=== PATIENT | male | born 1950 | race Caucasian/White ===

== ENCOUNTER 2020-08-19 20:54 | Emergency (ER) | payer MEDICARE, MEDICAID, SELFPAY ==
[2020-08-19 21:07] VITALS: BP 138/80; BP 173/80; PULSE 112; PULSE 127; RESP 20; TEMP 35.7; O2SAT 95; O2SAT 97; BMI 24.3
[2020-08-19 21:19] LABS: Glucose, Whole Blood 173 mg/dL (60-115)
--- NOTE | 2020-08-19 21:36 | ED.GENADULT ---
HPI - General Adult General Chief complaint: Psychiatric Symptoms Stated complaint: crisis Time Seen by Provider: 08/19/20 21:29 Source: patient and family Mode of arrival: EMS Limitations: other (Intellectually slow) History of Present Illness HPI narrative: Per patient's sister whose caregiver patient not eating good for last 2 days and today he refused to check his blood sugar hands his sister did not give him the insulin prior to arrival patient was little confused sister thought patient has low blood sugar so gave her orange juice and called the EMS on arrival patient's blood sugar was 173 pain denies any acute complaint saying his right hand is painful no abdominal pain no nausea no vomiting no fever no cough no shortness of breath HPI is limited as patient is intellectually slow Related Data Home Medications Medication Instructions Recorded Confirmed amlodipine 1 tab PO DAILY 08/19/20 08/19/20 blood sugar diagnostic [OneTouch 08/19/20 08/19/20 Ultra Blue Test Strip] empagliflozin [Jardiance] 1 tab PO DAILY 08/19/20 08/19/20 insulin aspart U-100 [Novolog 15 unit SUBCUT TID 08/19/20 08/19/20 U-100 Insulin aspart] ivabradine [Corlanor] 1 tab PO BID 08/19/20 08/19/20 lisinopril 1 tab PO DAILY 08/19/20 08/19/20 omeprazole 1 cap PO QAM 08/19/20 08/19/20 tramadol 1 tab PO QID 08/19/20 08/19/20 Allergies Allergy/AdvReac Type Severity Reaction Status Date / Time acetaminophen [From Tylenol] Allergy Unknown UNKNOWN Unverified 03/21/20 15:30 aspirin [Aspirin] AdvReac Unknown NAUSEA & Unverified 03/21/20 15:30 VOMITING Review of Systems Review of Systems: Yes Unobtainable due to mental status (Mentally challenged) [facility] Past Medical History Medical History (Updated 08/20/20 @ 01:32 by Josh Ceballos MD) Diabetes type 2, uncontrolled Mentally challenged Social History Social History Alcohol intake: unknown Smoking Status: Smoker, status unknown Use of substances other than those prescribed or required for medical reasons: Refusing to respond Advance Directives: No Advance Directives Information Provided: No Physical Exam Vital Signs: Vital Signs: Last Vital Signs Temp 96.2 F L 02/15/21 21:07 Pulse 127 H 08/19/20 21:07 Resp 18 08/19/20 22:17 BP 173/80 H 08/19/20 21:07 Pulse Ox 95 08/19/20 21:07 Body Mass Index 24.3 Const: General: no acute distress and well developed Orientation/consciousness: oriented to person and oriented to place Limitations: other limitations (Mentally challenged) HENMT: Head: Yes normocephalic and Yes atraumatic Ears: hearing grossly normal bilaterally Mouth: Normal oral and palatal mucosa present Eyes: General: appearance normal, both eyes and all related structures Neck: Neck: Yes normal visual inspection and Yes no JVD Chest: Chest palpation & inspection: normal palpation of entire chest wall Resp: Effort & Inspection: normal respiratory effort and able to speak in complete sentences Auscultation: clear to auscultation bilaterally, no crackles, no rales, no rhonchi and no wheezes Cardio: Jugular venous distension: no JVD Rate: regular rate Heart sounds: S1 normal heart sound present and S2 normal heart sound present Peripheral pulses: Peripheral pulses 2+ throughout GI: Inspection: Yes normal to inspection Palpation (GI): Soft to palpation, nontender and no guarding Auscultation: normal bowel sounds Skin: General skin exam: no rashes or lesions noted Neuro: General: oriented to person, oriented to place, gait normal and no focal motor deficits Extrem: General: Yes normal to inspection, Yes no calf tenderness, Yes normal gait and No pedal edema Course Course Course Narrative: Case discussed with patient's sister would like him to stay in the ER till morning does not feel comfortable taking him home at this time. Will will keep the patient until morning Medical Decision Making MDM Narrative Medical decision making narrative: Case discussed with patient's sister mentally challenged poor oral intake for last 2- 3 days lab workup showed slightly elevated sodium level of 146 and elevated WBC count no signs of infection patient received 1 L normal saline vital status stable will discharge patient home with advised to have plenty of fluids at home Lab Data Lab results reviewed: Yes I reviewed the patient's lab results. Result diagrams: 08/19/20 22:21 08/19/20 22:21 Labs: Lab Results 08/19/20 08/19/20 08/19/20 Range/Units 21:15 22:21 22:21 WBC 16.5 H (4.8-10.8) X10*3/uL RBC 5.56 (4.60-5.80) X10*6/uL Hgb 16.0 (14.0-18.0) g/dl Hct 48.9 (42-52) % MCV 87.9 (80-98) fL MCH 28.8 (27.0-33.0) pg MCHC 32.7 (31.0-36.0) g/dl RDW 12.2 (11.0-16.0) % Plt Count 240 (160-400) X10*3/uL MPV 9.5 (9.4-12.4) fL Immature Gran % (Auto) 0.4 (0.0-0.4) % Neut % (Auto) 86.8 H (45-73) % Lymph % (Auto) 8.0 L (20-40) % [place] % (Auto) 4.4 (2-11) % Eos % (Auto) 0.2 (0-4) % Baso % (Auto) 0.2 (0-2) % Lymph # (Auto) 1.3 (1.2-4.9) X10*3/uL [place] # (Auto) 0.7 (0.1-1.2) X10*3/uL Eos # (Auto) 0.0 (0.0-0.4) X10*3/uL Baso # (Auto) 0.0 (0.0-0.2) X10*3/uL Abs Immat Gran (auto) 0.06 H (0.00-0.03) X10*3/uL Absolute Neuts (auto) 14.3 H (2.0-8.3) X10*3/uL Absolute Nucleated RBC 0.000 (0.0-0.012) X10*3/uL Nucleated RBC % (auto) 0.0 (0.0-0.2) /100WBC Sodium 146 H (135-145) mmol/L Potassium 3.8 (3.3-5.1) mmol/L Chloride 105 (96-108) mmol/L Carbon Dioxide 29 (22-29) mmol/L Anion Gap 16 (12-20) BUN 20 H (9-16) mg/dL Creatinine 1.38 (0.5-1.4) mg/dL Estim Creat Clear Calc 47.5 Estimated GFR 51 POC Glucose 173 H (60-115) mg/dL Random Glucose 146 H (60-115) mg/dL Calcium 9.8 (8.4-10.2) mg/dL Total Bilirubin 0.9 (0.0-1.0) mg/dL Direct Bilirubin 0.3 (0.0-0.5) mg/dL AST 43 H (5-37) U/L ALT 39 (0-40) U/L Alkaline Phosphatase 107 (39-117) U/L Total Protein 7.0 (6.5-8.0) g/dL Albumin 4.2 (3.5-5.0) g/dL Urine Color Urine Appearance Urine pH (5.0-8.0) Ur Specific [place] (1.005-1.025) Urine Protein (NEG-TRACE) MG/DL Urine Glucose (UA) (NEG) MG/DL Urine Ketones (NEG) MG/DL Urine Blood (NEG) Urine Nitrite (NEG) Ur Leukocyte Esterase (NEG) Urine RBC (0) /HPF Urine WBC (0-4) /HPF Ur Squamous Epith Cells /LPF Urine Bacteria /LPF Hyaline Casts /LPF Granular Casts /LPF Urine Mucus /LPF COVID-19 ([facility]) (Negative) COVID-19 Clin Com 08/19/20 08/20/20 Range/Units 23:57 00:25 WBC (4.8-10.8) X10*3/uL RBC (4.60-5.80) X10*6/uL Hgb (14.0-18.0) g/dl Hct (42-52) % MCV (80-98) fL MCH (27.0-33.0) pg MCHC (31.0-36.0) g/dl RDW (11.0-16.0) % Plt Count (160-400) X10*3/uL MPV (9.4-12.4) fL Immature Gran % (Auto) (0.0-0.4) % Neut % (Auto) (45-73) % Lymph % (Auto) (20-40) % [place] % (Auto) (2-11) % Eos % (Auto) (0-4) % Baso % (Auto) (0-2) % Lymph # (Auto) (1.2-4.9) X10*3/uL [place] # (Auto) (0.1-1.2) X10*3/uL Eos # (Auto) (0.0-0.4) X10*3/uL Baso # (Auto) (0.0-0.2) X10*3/uL Abs Immat Gran (auto) (0.00-0.03) X10*3/uL Absolute Neuts (auto) (2.0-8.3) X10*3/uL Absolute Nucleated RBC (0.0-0.012) X10*3/uL Nucleated RBC % (auto) (0.0-0.2) /100WBC Sodium (135-145) mmol/L Potassium (3.3-5.1) mmol/L Chloride (96-108) mmol/L Carbon Dioxide (22-29) mmol/L Anion Gap (12-20) BUN (9-16) mg/dL Creatinine (0.5-1.4) mg/dL Estim Creat Clear Calc Estimated GFR POC Glucose (60-115) mg/dL Random Glucose (60-115) mg/dL Calcium (8.4-10.2) mg/dL Total Bilirubin (0.0-1.0) mg/dL Direct Bilirubin (0.0-0.5) mg/dL AST (5-37) U/L ALT (0-40) U/L Alkaline Phosphatase (39-117) U/L Total Protein (6.5-8.0) g/dL Albumin (3.5-5.0) g/dL Urine Color YELLOW Urine Appearance CLEAR Urine pH 6.5 (5.0-8.0) Ur Specific [place] 1.015 (1.005-1.025) Urine Protein 1+ H (NEG-TRACE) MG/DL Urine Glucose (UA) NEG (NEG) MG/DL Urine Ketones 15 (NEG) MG/DL Urine Blood TRACE (NEG) Urine Nitrite NEG (NEG) Ur Leukocyte Esterase NEG (NEG) Urine RBC 0-2 (0) /HPF Urine WBC 0-2 (0-4) /HPF Ur Squamous Epith Cells TRACE /LPF Urine Bacteria NONE /LPF Hyaline Casts 0-2 /LPF Granular Casts 0-2 /LPF Urine Mucus TRACE /LPF COVID-19 ([facility]) Negative (Negative) COVID-19 Clin Com See Note Discharge Plan Discharge Clinical Impression: Dehydration, Hypernatremia Patient Disposition: Home, Self-Care Instructions: Dehydration (ED), Hypernatremia (ED) Additional Instructions: Drink plenty of fluids and follow-up with PCP Take your insulin on time Prescriptions: No Action amlodipine 2.5 mg tablet 1 tab PO DAILY RF: 0 (DME) OneTouch Ultra Blue Test Strip Strip 1 strip MISCELLANEOUS TID RF: 0 omeprazole 40 mg capsule,delayed release(DR/EC) 1 cap PO QAM RF: 0 tramadol 50 mg tablet 1 tab PO QID RF: 0 insulin aspart U-100 [Novolog U-100 Insulin aspart] 100 unit/mL solution 15 unit subcut TID RF: 0 lisinopril 5 mg tablet 1 tab PO DAILY RF: 0 Corlanor 5 mg tablet 1 tab PO BID RF: 0 Jardiance 10 mg tablet 1 tab PO DAILY RF: 0
[2020-08-19 22:17] VITALS: RESP 18
[2020-08-19 22:25] LABS: MANUAL DIFF FLAG NO
[2020-08-19 22:26] LABS: Basophils Percent Auto 0.2 % (0-2); Eosinophils Percent Auto 0.2 % (0-4); Hematocrit 48.9 % (42-52); Imm Gran Abs Auto 0.06 X10*3/uL (0.00-0.03); Imm Gran Pct Auto 0.4 % (0.0-0.4); Lymphocytes Absolute Auto 1.3 X10*3/uL (1.2-4.9); Mean Corpuscular HGB Conc 32.7 g/dl (31.0-36.0); Mean Corpuscular Hemoglobin 28.8 pg (27.0-33.0); Mean Corpuscular Volume 87.9 fL (80-98); Mean Platelet Volume 9.5 fL (9.4-12.4); Monocytes Absolute Auto 0.7 X10*3/uL (0.1-1.2); Monocytes Percent Auto 4.4 % (2-11); Neutrophils Absolute Auto 14.3 X10*3/uL (2.0-8.3); Neutrophils Percent Auto 86.8 % (45-73); Platelet Count 240 X10*3/uL (160-400); Red Blood Count 5.56 X10*6/uL (4.60-5.80); Red Cell Distribution Width 12.2 % (11.0-16.0); White Blood Count 16.5 X10*3/uL (4.8-10.8)
[2020-08-19 22:51] LABS: Alanine Aminotransferase 39 U/L (0-40); Albumin Level 4.2 g/dL (3.5-5.0); Alkaline Phosphatase 107 U/L (39-117); Anion Gap 16 (12-20); Aspartate Amino Transferase 43 U/L (5-37); Bilirubin Direct 0.3 mg/dL (0.0-0.5); Bilirubin Total 0.9 mg/dL (0.0-1.0); Blood Urea Nitrogen 20 mg/dL (9-16); Calcium 9.8 mg/dL (8.4-10.2); Carbon Dioxide 29 mmol/L (22-29); Chloride 105 mmol/L (96-108); Creatinine Clr Calc Pharmacy 47.5; Estimated Glomerular Filt Rate 51; Glucose Random 146 mg/dL (60-115); Potassium 3.8 mmol/L (3.3-5.1); Sodium 146 mmol/L (135-145)
[2020-08-20 00:05] LABS: Appearance Urine CLEAR; Color Urine YELLOW; Glucose Urine UA NEG (NEG); Leukocyte Esterase Urine NEG (NEG); Nitrite Urine NEG (NEG); PH 6.5 (5.0-8.0); Specific Gravity - Urine 1.015 (1.005-1.025); Urine Blood TRACE (NEG); Urine Ketones 15 MG/DL (NEG); Urine Protein 1+ MG/DL (NEG-TRACE)
[2020-08-20 00:11] LABS: RBC Urine 0-2 /HPF (0); Squamous Epithelial Cell Urine TRACE /LPF; WBC Urine 0-2 /HPF (0-4)
[2020-08-20 00:12] LABS: Granular Casts Urine 0-2 /LPF; Hyaline Casts Urine 0-2 /LPF; Mucus Urine TRACE /LPF
[2020-08-20] MEDS: 0.9 % Sodium Chloride 1,000 ML 999 ML IVCONT (00:35)
--- NOTE | 2020-08-20 00:36 | PC.NURSE ---
22g l hand established for iv bolus.
[2020-08-20 01:08] LABS: COVID-19 Test Negative (Negative); IDNOW Serial# 9DD0AD1C
--- NOTE | 2020-08-20 01:38 | PC.NURSE ---
Addendum entered by Jory Weaver 08/20/20 01:39: PER MD ROJAS. PATIETN TO BE D/C IN AM AT 7AM, POST SHIFT CHANGE PER FAMILY REQUEST. CONTINUING TO [facility] AT THIS TIME. Original Note: PT TO BE HELD IN ED.
[2020-08-20 02:00] VITALS: RESP 18
[2020-08-20 05:51] VITALS: RESP 16; O2SAT 100
--- NOTE | 2020-08-20 06:00 | PC.NURSE ---
per md no no need for repeat bmp, iv removed. no need for repeat bgl.
--- NOTE | 2020-08-20 06:03 | PC.NURSE ---
pt adamantly refusing all addition repeat labs.
--- NOTE | 2020-08-20 06:04 | PC.NURSE ---
call placed to caregiver. no answer.
--- NOTE | 2020-08-20 06:39 | PC.NURSE ---
called 4x to obtain ride for patient. no answer.
--- NOTE | 2020-08-20 08:28 | PC.NURSE ---
attempt to call sister loraine listed as contact. no answer. answering machine was to [phone].
--- NOTE | 2020-08-20 09:36 | PC.NURSE ---
sister called states she is going to shower and come pick pt up
== END 2020-08-20 11:46 | disposition home or self-care (01) ==
PROVIDERS: Emergency Provider Internal Medicine
DX: E86.0 Dehydration (principal); E87.0 Hyperosmolality and hypernatremia; Z20.822 Contact with and (suspected) exposure to COVID-19; E11.9 Type 2 diabetes mellitus without complications; Z79.4 Long term (current) use of insulin; F79 Unspecified intellectual disabilities
CPT/HCPCS: 36415; 80048; 80076; 81001; 82947; 85025; 87635; 96360; 99284